=== PATIENT | male | born 1955 | race Caucasian/White ===

== ENCOUNTER 2024-01-27 16:00 | Emergency (ER) | payer MEDICARE, OTHER ==
[~2024-01-27] VITALS: Ht 185.4 cm; Wt 114.0 kg
[2024-01-27 16:09] VITALS: BP 116/80; PULSE 86; RESP 16; TEMP 98; O2SAT 98
[2024-01-27] MEDS ORDERED: LID5T TP (17:34)
[2024-01-27] MEDS ORDERED: TRAM-748 PO (17:34)
== END 2024-01-27 17:49 | disposition home or self-care (01) ==
LOC: MED 16:00
DX: M51.369 Other intervertebral disc degeneration, lumbar region without mention of lumbar back pain or lower extremity pain (principal); I10 Essential (primary) hypertension; Z90.49 Acquired absence of other specified parts of digestive tract; Z98.890 Other specified postprocedural states; Z79.899 Other long term (current) drug therapy
CPT/HCPCS: 99283